=== PATIENT | male | born 1980 | race African-American/Black ===

== ENCOUNTER 2018-04-20 18:23 | Emergency (ER) | payer OTHER ==
[~2018-04-20] VITALS: Ht 175.3 cm; Wt 93.0 kg
[2018-04-20 18:30] VITALS: BP 133/74
[2018-04-20] MEDS ORDERED: Norco 5mg/325mg tab PO ONE (18:30)
[2018-04-20] MEDS ORDERED: Ketorolac 30mg Inj IM ONE (18:30)
[2018-04-20 19:15] VITALS: BP 133/74
[2018-04-20] MEDS ORDERED: ROBAXIN-750750 MG PO (19:24)
[2018-04-20] MEDS ORDERED: TYLENOL EXTRA500 MG ORAL (19:24)
--- NOTE | 2018-04-21 08:35 | Diagnostic Imaging Report ---
Indication: Headache Technique: Continuous helical CT scanning of the head was performed utilizing automated exposure control without intravenous contrast material. Axial and coronal reconstructions were obtained. Comparison: None CT dose: Total DLP 1382.9 mGycm; CTDI vol 70.38 mGy Findings: There is no acute intracranial hemorrhage, mass effect or cortical edema. The ventricles, cisterns and sulci are within normal limits for age. Visualized mastoid air cells and paranasal sinuses are unremarkable. No focal lesions of the bony calvarium or soft tissues of the scalp are seen. IMPRESSION: No evidence of acute intracranial hemorrhage, mass effect or cortical edema. MRI may be obtained for more sensitive evaluation as clinically indicated. This corresponds with the statrad preliminary report. The CT scanner at [facility] is accredited by the [employer] and the scans are performed using protocols designed to limit radiation exposure to as low as reasonably achievable to attain images of sufficient resolution adequate for diagnostic evaluation.
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
== END 2018-04-20 19:15 | disposition home or self-care (01) ==
LOC: EDBD 18:23 → EMR 19:05
DX: S09.90XA Unspecified injury of head, initial encounter (principal); V43.62XA Car passenger injured in collision with other type car in traffic accident, initial encounter; Y92.410 Unspecified street and highway as the place of occurrence of the external cause
CPT/HCPCS: 70450; 99284; J1885